=== PATIENT | male | born 1995 | race Caucasian/White ===

== ENCOUNTER 2016-09-03 03:36 | Observation (INO) | payer MEDICAID ==
[2016-09-03] MEDS ORDERED: Morphine 4 MG/ML Syringe IM ONE (03:45)
[2016-09-03] MEDS ORDERED: HYDROmorphone 1 MG/ML Syringe IVPUSH ONE (04:34)
--- NOTE | 2016-09-03 04:38 | EDM.PDOC ---
ED HPI GENERAL MEDICAL PROBLEM - General Chief Complaint: Lower Extremity Injury/Pain Stated Complaint: Left ankle injury Time Seen by Provider: 09/03/16 03:42 Source of Information: Reports: Patient History Limitations: Reports: No Limitations - History of Present Illness INITIAL COMMENTS - FREE TEXT/NARRATIVE: Patient brought in after jumping off a concrete ledge and landing on his left heel. He is in severe pain rolling on the stretcher. He did not hit his head, no LOC, no pain anywhere else. States he landed just on his left heel and collapsed due to the pain once landing. He estimates he jumped about 6 feet down. Onset: Today Onset Date: 09/03/16 Onset Time: 04:00 Duration: Getting Worse Quality: Reports: Ache, Sharp Severity: Severe Worsens with: Reports: Movement Associated Symptoms: Reports: No Other Symptoms left outer ankle Pain Score (Numeric/FACES): 10 - Related Data Allergies Allergy/AdvReac Type Severity Reaction Status Date / Time No Known Drug Allergies Allergy Other Verified 09/03/16 04:01 Home Meds: Home Meds . [No Known Home Meds] 09/03/16 [History] Past Medical History - Past Health History Medical/Surgical History: Denies Medical/Surgical History Social & Family History - Tobacco Use Years of Tobacco use: 4 - Alcohol Use Days Per Week of Alcohol Use: 1 Number of Drinks Per Day: 6 Total Drinks Per Week: 6 - Recreational Drug Use Recreational Drug Use: No Review of Systems - Review of Systems Review Of Systems: See Below Constitutional: Reports: No Symptoms Eyes: Reports: No Symptoms Ears: Reports: No Symptoms Nose: Reports: No Symptoms Mouth/Throat: Reports: No Symptoms Respiratory: Reports: No Symptoms Cardiovascular: Reports: No Symptoms GI/Abdominal: Reports: No Symptoms Genitourinary: Reports: No Symptoms Musculoskeletal: Reports: Foot Pain Skin: Reports: No Symptoms Neurological: Reports: No Symptoms Psychiatric: Reports: No Symptoms ED EXAM, GENERAL - Physical Exam Exam: See Below Exam Limited By: No Limitations General Appearance: Alert, WD/WN, Moderate Distress Eye Exam: Bilateral Eye: EOMI, PERRL Ears: Normal TMs Head: Atraumatic, Normocephalic Neck: Normal Inspection Respiratory/Chest: No Respiratory Distress, Lungs Clear, Normal Breath Sounds, No Accessory Muscle Use, Chest Non-Tender Cardiovascular: Normal Peripheral Pulses, Regular Rate, Rhythm, No Edema GI/Abdominal: Normal Bowel Sounds, Soft, Non-Tender Extremities: Pedal Edema, Joint Swelling, Leg Pain (left heel and ankle swelling , reduced range of motion, intact neurovascular status) Neurological: Alert, Oriented, CN II-XII Intact Psychiatric: Normal Affect, Normal Mood Skin Exam: Warm, Dry, Intact, Normal Color, No Rash Lymphatic: No Adenopathy Course - Vital Signs Last Recorded V/S: Last Vital Signs Temp 36.6 C 09/03/16 03:40 Pulse 106 H 09/03/16 03:40 Resp 16 09/03/16 03:40 BP 137/96 H 09/03/16 03:40 Pulse Ox 97 09/03/16 03:40 - Orders/Labs/Meds Orders: Active Orders 24 hr Category Date Time Status Ankle Min 3V Lt [CR] Stat Exams 09/03/16 03:46 Ordered Foot Comp Min 3V Lt [CR] Stat Exams 09/03/16 03:46 Ordered Meds: Medications Discontinued Medications Generic Name Dose Route Start Last Admin Trade Name Phil PRN Reason Stop Dose Admin Morphine Sulfate 4 mg 09/03/16 03:45 09/03/16 03:50 Morphine IM 09/03/16 03:46 4 mg ONETIME ONE Administration Departure - Departure Time of Disposition: 04:38 Disposition: Refer to Observation Condition: Fair Clinical Impression: Closed left calcaneal fracture - Discharge Information Forms: ED Department Discharge - My Orders Last 24 Hours: My Active Orders 09/03/16 03:46 Ankle Min 3V Lt [CR] Stat Foot Comp Min 3V Lt [CR] Stat - Assessment/Plan Last 24 Hours: My Active Orders 09/03/16 03:46 Ankle Min 3V Lt [CR] Stat Foot Comp Min 3V Lt [CR] Stat
[2016-09-03] MEDS ORDERED: Ondansetron 4 MG Tab.DIS PO PRN (04:58)
[2016-09-03] MEDS ORDERED: Acetaminophen/oxyCODONE 325-5 MG Tab PO PRN (04:58)
[2016-09-03] MEDS ORDERED: Ketorolac 30 MG/ML SDV IVPUSH ONE (05:04)
[2016-09-03] MEDS: Morphine 2 MG/ML Syringe IVPUSH PRN ×4 (07:40→23:21)
[2016-09-03] MEDS ORDERED: Ketorolac 30 MG/ML SDV IVPUSH SCH ×3 (08:30→11:00)
[2016-09-03] MEDS: HYDROmorphone 1 MG/ML Syringe IVPUSH PRN ×3 (09:04→21:11)
[2016-09-03] MEDS ORDERED: Ketorolac 30 MG/ML SDV IVPUSH PRN (10:00)
[2016-09-03] MEDS: Enoxaparin 40 MG/0.4 ML Syringe SUBCUT SCH (10:54)
[2016-09-03] MEDS: Ketorolac 30 MG/ML SDV IVPUSH SCH ×3 (10:56→22:27)
[2016-09-03] MEDS: Nicotine 14 MG/24 Hr Patch TRDERM SCH (11:03)
[2016-09-03] MEDS: Acetaminophen/oxyCODONE 325-5 MG Tab PO PRN ×3 (11:47→23:21)
[2016-09-03] MEDS: Ondansetron 4 MG/2 ML SDV IV PRN ×2 (17:40→23:16)
[2016-09-03] MEDS: Sodium Chloride 0.9% 10 ML Syringe FLUSH PRN ×2 (21:11→23:16)
[2016-09-04] MEDS: Acetaminophen/oxyCODONE 325-5 MG Tab PO PRN ×2 (08:39→14:15)
[2016-09-04] MEDS: Enoxaparin 40 MG/0.4 ML Syringe SUBCUT SCH (08:40)
[2016-09-04] MEDS: Nicotine 14 MG/24 Hr Patch TRDERM SCH (08:41)
[2016-09-04] MEDS: Morphine 2 MG/ML Syringe IVPUSH PRN (10:36)
[2016-09-04] MEDS ORDERED: Ibuprofen 200 MG Tab PO SCH (11:30)
[2016-09-04] MEDS: HYDROmorphone 1 MG/ML Syringe IVPUSH PRN (12:04)
--- NOTE | 2016-09-04 13:12 | PCM.PN ---
- General Info Date of Service: 09/04/16 Admission Dx/Problem (Free Text): Right calcaneous fracture Subjective Update: Patient still requiring IV meds for pain control due to sever pain right heel. Has been up on crutches after instructions by nursing. Did well with crutches. No SOB or chest pain noted. No bowel or bladder issues. Pain now 7/10 at rest after dose of IV dilaudid a few minutes ago. Pain Score: 7 - Review of Systems General: Reports: No Symptoms HEENT: Reports: no symptoms Pulmonary: Reports: no symptoms Cardiovascular: Reports: No Symptoms Gastrointestinal: Reports: No symptoms Genitourinary: Reports: no symptoms Musculoskeletal: Reports: foot pain, joint pain, other (pain right foot and heel due to fracture.) Skin: Reports: no symptoms Neurological: Reports: No Symptoms Psychiatric: Reports: no symptoms - Patient Data Vitals - most recent: Last Vital Signs Temp 36.7 C 09/04/16 10:00 Pulse 60 09/04/16 10:00 Resp 20 09/04/16 10:00 BP 127/65 09/04/16 10:00 Pulse Ox 100 09/04/16 10:00 Weight - most recent: 69.354 kg I&O - last 24 hours: Intake & Output 09/03/16 09/04/16 09/04/16 22:59 06:59 14:59 Intake Total 400 Output Total 800 400 Balance -400 -400 Med Orders - Current: Current Medications Enoxaparin Sodium (Lovenox) 40 mg SUBCUT DAILY [facility] Last Admin: 09/04/16 08:40 Dose: 40 mg Hydromorphone HCl (Dilaudid) 2 mg IVPUSH Q4H PRN PRN Reason: Pain (severe 7-10) Last Admin: 09/04/16 12:04 Dose: 2 mg Ibuprofen (Motrin) 600 mg PO Q6H [facility] Last Admin: 09/04/16 11:41 Dose: 600 mg Morphine Sulfate (Morphine) 2 mg IVPUSH Q2H PRN PRN Reason: Pain (severe 7-10) Last Admin: 09/04/16 10:36 Dose: 2 mg Nicotine (Habitrol) 14 mg TRDERM DAILY [facility] Last Admin: 09/04/16 08:41 Dose: 14 mg Ondansetron HCl (Zofran Odt) 4 mg PO Q4H PRN PRN Reason: nausea, able to take PO Ondansetron HCl (Zofran) 4 mg IV Q4H PRN PRN Reason: Nausea/Vomiting Last Admin: 09/03/16 23:16 Dose: 4 mg Oxycodone/Acetaminophen (Percocet 325-5 Mg) 1 tab PO Q4H PRN PRN Reason: Pain (moderate 4-6) Last Admin: 09/03/16 07:41 Dose: 1 tab Oxycodone/Acetaminophen (Percocet 325-5 Mg) 1 - 2 tab PO Q4H PRN PRN Reason: Pain (moderate 4-6) Last Admin: 09/04/16 08:39 Dose: 2 tab Sodium Chloride (Saline Flush) 10 ml FLUSH ASDIRECTED PRN PRN Reason: Keep Vein Open Last Admin: 09/03/16 23:16 Dose: 10 ml Discontinued Medications Hydromorphone HCl (Dilaudid) 1 mg IVPUSH ONETIME ONE Stop: 09/03/16 04:35 Last Admin: 09/03/16 04:50 Dose: 1 mg Ketorolac Tromethamine (Toradol) 30 mg IVPUSH Q6H PRN PRN Reason: Pain (moderate 4-6) Ketorolac Tromethamine (Toradol) 30 mg IVPUSH ONETIME ONE Stop: 09/03/16 05:05 Last Admin: 09/03/16 05:32 Dose: 30 mg Ketorolac Tromethamine (Toradol) 30 mg IVPUSH Q6H [facility] Stop: 09/04/16 02:46 Last Admin: 09/03/16 19:49 Dose: Not Given Ketorolac Tromethamine (Toradol) 30 mg IVPUSH Q6H [facility] Stop: 09/04/16 05:01 Ketorolac Tromethamine (Toradol) 30 mg IVPUSH Q6H [facility] Stop: 09/03/16 23:01 Last Admin: 09/03/16 22:27 Dose: 30 mg Morphine Sulfate (Morphine) 4 mg IM ONETIME ONE Stop: 09/03/16 03:46 Last Admin: 09/03/16 03:50 Dose: 4 mg - Exam General: alert, oriented HEENT: Pupils equal, Pupils reactive, EOMI Neck: supple Lungs: Clear to auscultation, Normal respiratory effort Cardiovascular: Regular Rate, Regular Rhythm Abdomen: bowel sounds present, soft, no tenderness (Male) Exam: Deferred Back Exam: Normal Inspection, Full Range of Motion Extremities: normal pulses, other (tenderness and swelling right heel secondary to fracture. CMS intact) Peripheral Pulses: 4+: Dorsalis Pedis (L), Dorsalis Pedis (R) Skin: warm, dry, intact Neurological: no new focal deficit Psy/Mental Status: alert, normal affect, normal mood - Problem List & Annotations (1) Closed left calcaneal fracture SNOMED Code(s): 31894711 Code(s): S92.002A - UNSP FRACTURE OF LEFT CALCANEUS, INIT FOR CLOS FX Status: Acute Priority: High Current Visit: Yes Qualifiers: Encounter type: subsequent encounter Calcaneus location: unspecified portion of calcaneus Fracture alignment: nondisplaced - Problem List Review Problem List Initiated/Reviewed/Updated: Yes - My Orders Last 24 Hours: My Active Orders 09/04/16 11:30 Ibuprofen [Motrin] 600 mg PO Q6H - Assessment Assessment:: uncontrolled pain right heel secondary to calcaneal fracture - Plan Plan:: Needs to be off IV pain meds and on orals prior to discharge. Was started on schedule ibuprofen every six hours earlier today. Will try to get by with just oral pain meds the rest of the day. I spoke with Dr Ibarra yesterday to review CT of heel results. He plans on seeing patient in clinic on here in [place]. Patient was advised of this and surgery will not likely be for ten days according to Dr Ibarra. Will have patient seen after 7 pm by admitting provider for evaluation to see if ready to be discharge.
[2016-09-04 14:10] VITALS: BP 130/70
[2016-09-04] MEDS ORDERED: Take Home: Acetaminophen/oxyCODONE 325-5 MG, 5 Tab Pack PO ONE (14:44)
--- NOTE | 2016-09-04 18:15 | PCM.DCSUM1 ---
Discharge Summary - Hospital Course Free Text/Narrative:: Patient was admitted for pain control from fractured heel right foot. Initially was on IV narcotics and toradol. Pain is under improved control and patient is anxious to go home on oral meds. He has been using percocet 5/325 while in hospital and will be discharged on the same. He is given a starter pack of 5 and a prescription for #20 he can fill tomorrow. He is to follow up with Dr Ibarra in [place] on for further evaluation. Patient voiced understanding of discharge instruction and agreed with plan. We specifically reviewed the precautions related to using percocet, specifically potential for dependence, tolerance and addiction. Also the necessity of using it exactly as prescribed. Please see progress note from this morning for further details of patient exam - Discharge Data Discharge Date: 09/04/16 Discharge Disposition: Home, Self-Care 01 Condition: Good - Discharge Diagnosis/Problem(s) (1) Closed left calcaneal fracture SNOMED Code(s): 24027607 ICD Code: S92.002A - UNSP FRACTURE OF LEFT CALCANEUS, INIT FOR CLOS FX Status: Acute Priority: High Current Visit: Yes Qualifiers: Encounter type: subsequent encounter Calcaneus location: unspecified portion of calcaneus Fracture alignment: nondisplaced - Patient Summary/Data Consults: Consultations 09/03/16 04:58 PT Evaluation and Treatment [CONS] Routine - Patient Instructions Diet: Usual Diet as Tolerated Activity: Apply Ice, Elevate Extremity, Non Weight Bearing, No Strenuous Activities Driving: Do Not Drive Showering/Bathing: May Shower Notify Provider of: Nausea and/or Vomiting Other/Special Instructions: Use ibuprofen 600 mg every 6-8 hours with food or milk. Use oxycodone /apap 5/325 one or two tablets every six hours for severe pain. watch for constipation. Do not mix with alcohol or drive til you know how this drug affects you. Be aware it has addictive potential so use EXACTLY as prescribed. Follow up with Dr Ibarra here in [place] on - Discharge Plan Home Medications: Home Meds . [No Known Home Meds] 09/03/16 [History] Patient Handouts: Ankle Fracture Forms: ED Department Discharge Referrals: PCP,Unobtain [Primary Care Provider] - - Patient Data Vitals - Most Recent: Last Vital Signs Temp 36.4 C 09/04/16 14:00 Pulse 65 09/04/16 14:00 Resp 20 09/04/16 14:00 BP 130/70 09/04/16 14:00 Pulse Ox 99 09/04/16 14:00 Weight - Most Recent: 69.354 kg I&O - Last 24 hours: Intake & Output 09/04/16 09/04/16 09/04/16 06:59 14:59 22:59 Intake Total 480 Output Total 400 Balance -400 480 Med Orders - Current: Current Medications Enoxaparin Sodium (Lovenox) 40 mg SUBCUT DAILY [facility] Last Admin: 09/04/16 08:40 Dose: 40 mg Hydromorphone HCl (Dilaudid) 2 mg IVPUSH Q4H PRN PRN Reason: Pain (severe 7-10) Last Admin: 09/04/16 12:04 Dose: 2 mg Ibuprofen (Motrin) 600 mg PO Q6H [facility] Last Admin: 09/04/16 11:41 Dose: 600 mg Morphine Sulfate (Morphine) 2 mg IVPUSH Q2H PRN PRN Reason: Pain (severe 7-10) Last Admin: 09/04/16 10:36 Dose: 2 mg Nicotine (Habitrol) 14 mg TRDERM DAILY [facility] Last Admin: 09/04/16 08:41 Dose: 14 mg Ondansetron HCl (Zofran Odt) 4 mg PO Q4H PRN PRN Reason: nausea, able to take PO Ondansetron HCl (Zofran) 4 mg IV Q4H PRN PRN Reason: Nausea/Vomiting Last Admin: 09/03/16 23:16 Dose: 4 mg Oxycodone/Acetaminophen (Percocet 325-5 Mg) 1 tab PO Q4H PRN PRN Reason: Pain (moderate 4-6) Last Admin: 09/03/16 07:41 Dose: 1 tab Oxycodone/Acetaminophen (Percocet 325-5 Mg) 1 - 2 tab PO Q4H PRN PRN Reason: Pain (moderate 4-6) Last Admin: 09/04/16 14:15 Dose: 2 tab Sodium Chloride (Saline Flush) 10 ml FLUSH ASDIRECTED PRN PRN Reason: Keep Vein Open Last Admin: 09/03/16 23:16 Dose: 10 ml Discontinued Medications Hydromorphone HCl (Dilaudid) 1 mg IVPUSH ONETIME ONE Stop: 09/03/16 04:35 Last Admin: 09/03/16 04:50 Dose: 1 mg Ketorolac Tromethamine (Toradol) 30 mg IVPUSH Q6H PRN PRN Reason: Pain (moderate 4-6) Ketorolac Tromethamine (Toradol) 30 mg IVPUSH ONETIME ONE Stop: 09/03/16 05:05 Last Admin: 09/03/16 05:32 Dose: 30 mg Ketorolac Tromethamine (Toradol) 30 mg IVPUSH Q6H [facility] Stop: 09/04/16 02:46 Last Admin: 09/03/16 19:49 Dose: Not Given Ketorolac Tromethamine (Toradol) 30 mg IVPUSH Q6H [facility] Stop: 09/04/16 05:01 Ketorolac Tromethamine (Toradol) 30 mg IVPUSH Q6H [facility] Stop: 09/03/16 23:01 Last Admin: 09/03/16 22:27 Dose: 30 mg Morphine Sulfate (Morphine) 4 mg IM ONETIME ONE Stop: 09/03/16 03:46 Last Admin: 09/03/16 03:50 Dose: 4 mg Oxycodone/Acetaminophen (Take Home: Acetamin/Oxycodon 325-5 Mg, 5 Pack) 1 packet PO ONETIME ONE Stop: 09/04/16 14:45 Last Admin: 09/04/16 17:38 Dose: 1 packet *Q Meaningful Use (DIS) - VTE *Q VTE Criteria *Q: - Stroke *Q Stroke Criteria *Q: - AMI *Q AMI Criteria *Q:
== END 2016-09-04 17:35 | disposition home or self-care (01) ==
LOC: VM.ED 03:36 → VM.MS 04:35
PROVIDERS: ADMIT Nurse Practitioner Family; ATTEND Nurse Practitioner Family
DX: S92.002A Unspecified fracture of left calcaneus, initial encounter for closed fracture (principal); W17.89XA Other fall from one level to another, initial encounter; Y93.39 Activity, other involving climbing, rappelling and jumping off
CPT/HCPCS: 36415; 73610; 73630; 73700; 82565; 85049; 96372; 96374; 96375; 96376; 99284; A9270; G0378; J1170; J1650; J1885; J2270; J2405; J7050